=== PATIENT | male | born 1995 | race Two or more races ===

== ENCOUNTER 2019-02-17 16:02 | Emergency (ER) | payer OTHER ==
[~2019-02-17] VITALS: Ht 172.7 cm; Wt 81.6 kg
[2019-02-17 16:05] VITALS: BP 114/66
--- NOTE | 2019-02-17 16:09 | NUR ---
ED Nurse Note: patient reports he slipped and fell and twisted his right ankle and right knee. patient c/o 6/10 pain. patient is alert awake x4 ambulatory, breathing unlabored and even, skin is warm to touch.
--- NOTE | 2019-02-17 16:30 | Emergency Room Report ---
History of Present Illness General Chief Complaint: Multiple Trauma/Fall Source: Patient Present Illness HPI Patient is a 23-year-old male male who presented after increased right knee pain. 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 He reports twisting his knee. He reports having some increased pain to the medial knee. Pain was achy in nature. He denies any other locations of injury. He denies any prior medical history. Patient had not been having any numbness or weakness distally. Allergies: Coded Allergies: No Known Allergies (Unverified , 02/17/19) Patient History Past Medical History: see triage record Reviewed Nursing Documentation: PMH: Agreed; PSxH: Agreed Nursing Documentation-PMH Past Medical History: No Stated History Review of Systems All Other Systems: negative except mentioned in HPI Physical Exam Vital Signs Date Time Temp Pulse Resp B/P (MAP) Pulse Ox O2 Delivery O2 Flow Rate FiO2 02/17/19 16:05 98.1 83 14 114/66 (82) 97 Room Air General Appearance: well appearing, no apparent distress, alert, GCS 15 Head: normocephalic, atraumatic ENT: hearing grossly normal, normal voice Neck: full range of motion, supple Respiratory: no respiratory distress, speaking full sentences Gastrointestinal: normal inspection Musculoskeletal: normal inspection, normal range of motion, no calf tenderness , other - no ligamentous laxity noted, slight medial joint tenderness Neurologic: normal inspection, alert, oriented x3, responsive, b2b sales manager III-XII nml as tested, normal gait Psychiatric: mood/affect normal Skin: no rash Medical Decision Making Diagnostic Impression: Primary Impression: Fall Additional Impression: Right knee sprain ER Course . Patient presented for right knee pain. Differential diagnosis include was not limited to sprain, contusion, meniscal injury among others. X-ray imaging of the right knee 4 views interpreted by me showed normal bony alignment without a fracture. Patient was noted to be able to ambulate without assistance. He is patient appears to be stable for continued working. Patient was advised not to perform activities requiring climbing or heavy lifting.Patient appears to be able to resume work immediately.Patient was given lifting restrictions greater than 40 pounds advised not to perform heavy squatting or bending. The patient is advised to follow up with employee health in 1-2 days. Patient is advised to return if any worsening condition or if any changes in status that are concerning. This report is dictated with [employer] hammer runner software which may occasionally lead to discrepancies related to use of this software. Last Vital Signs Date Time Temp Pulse Resp B/P (MAP) Pulse Ox O2 Delivery O2 Flow Rate FiO2 02/17/19 16:18 83 14 Room Air 02/17/19 16:05 98.1 114/66 97 Status: improved Disposition: HOME, SELF-CARE Condition: Stable Scripts Ibuprofen* (MOTRIN*) 600 Mg Tablet 600 MG ORAL Q8H PRN for For Pain, #30 TAB 0 Refills Prov: Denis Brown MD 02/17/19 Denis Brown MD Feb 17, 2019 16:29
[2019-02-17 17:00] VITALS: BP 114/66
--- NOTE | 2019-02-17 17:00 | NUR ---
ER DISCHARGE NOTE: Patient is cleared to be discharged per ERMD DR FLORES, pt is aox4, on room air, with stable vital signs. pt was given dc and prescription instructions, pt was able to verbalize understanding, pt id band removed without complications. pt is able to ambulate with steady gait. pt took all belongings.
[2019-02-17] MEDS ORDERED: IBUPROFEN600 MG ORAL (17:02)
--- NOTE | 2019-02-18 14:00 | Diagnostic Imaging Report ---
Indication: Pain Knee pain/trauma 3 views of the right knee were obtained. Findings: No acute fracture, malalignment, or joint effusion are identified. Impression: Negative for acute findings.
== END 2019-02-17 17:00 | disposition home or self-care (01) ==
LOC: EDBD 16:02 → EMR 16:25
DX: S83.91XA Sprain of unspecified site of right knee, initial encounter (principal); W19.XXXA Unspecified fall, initial encounter; Y92.9 Unspecified place or not applicable
CPT/HCPCS: 99283